=== PATIENT | female | born 1990 | race Caucasian/White ===

== ENCOUNTER 2016-12-31 18:33 | Emergency (ER) | payer BC ==
[~2016-12-31] VITALS: Ht 157.5 cm; Wt 54.4 kg
[2016-12-31] MEDS ORDERED: ZANTAC150 MG ORAL (18:52)
[2016-12-31] MEDS ORDERED: SUCRALFATE1 GM ORAL (18:52)
[2016-12-31] MEDS ORDERED: BENTYL10 MG ORAL (19:19)
[2016-12-31] MEDS ORDERED: Lidocaine 2% Visc 15ml soln ORAL ONE (19:30)
[2016-12-31] MEDS ORDERED: Dicyclomine HCl 10mg/5ml oral soln ORAL ONE (19:30)
[2016-12-31] MEDS ORDERED: LIDOCAINE VISCO20 ML PO (19:57)
[2016-12-31 20:02] LABS: APPEARANCE,URINE CLEAR; KETONES,URINE NEGATIVE (NEGATIVE); LEUKOCYTE ESTERASE ,URINE 1+ (NEGATIVE); NITRITE,URINE NEGATIVE (NEGATIVE); PH,URINE 7 (4.5-8.0); PROTEIN,URINE NEGATIVE (NEGATIVE); UROBILINOGEN,URINE NORMAL MG/DL (0.0-1.0)
--- NOTE | 2016-12-31 20:02 | Emergency Room Report ---
History of Present Illness General Chief Complaint: Abdominal Pain Source: Patient Present Illness HPI This is a 26-year-old female presented for increased abdominal pain. Patient gradual onset of symptoms. Patient recently been treated for gastritis. This had been diagnosed on endoscopy. The patient previous said history of H. pylori. Patient recently been switched from her Protonix to sucralfate and ranitidine. Patient not been having any black or bloody stools. She denied any fever. She denied having any diarrhea. Patient taken viscous lidocaine combined with Mylanta and Gas-X. This did not modify the pain. Patient reported having increased pain after eating. Allergies: Coded Allergies: PENICILLINS (Verified Allergy, Unknown, 12/31/16) Patient History Past Medical History: see triage record Last Menstrual Period: 11/08/2016 Reviewed Nursing Documentation: PMH: Agreed, PSxH: Agreed Nursing Documentation-PMH Past Medical History: No History, Except For Hx Gastrointestinal Problems: Yes - Gastritis, H.Pylori Review of Systems All Other Systems: negative except mentioned in HPI Physical Exam Vital Signs Date Time Temp Pulse Resp B/P Pulse Ox O2 Delivery O2 Flow Rate FiO2 12/31/16 18:38 98.1 53 16 122/84 97 General Appearance: well appearing, no apparent distress, alert, GCS 15 Head: normocephalic, atraumatic ENT: hearing grossly normal, normal voice Neck: full range of motion, supple Respiratory: no respiratory distress, speaking full sentences Cardiovascular #1: regular rate, rhythm, no edema Gastrointestinal: normal inspection, normal bowel sounds, soft, no mass Musculoskeletal: no calf tenderness Neurologic: normal inspection, alert, oriented x3, responsive, cutter and presser III-XII nml as tested, normal gait Psychiatric: mood/affect normal Skin: no rash Medical Decision Making Diagnostic Impression: Primary Impression: Nonspecific abdominal pain Additional Impression: Gastritis ER Course Patient presented for abdominal pain. Differential diagnoses included ischemic bowel, appendicitis, perforated viscus, abdominal aortic aneurysm, inferior myocardial infarction, viral gastroenteritis Patient's benign exam and does not appear to require any further imaging or laboratory testing at this time. The patient was noted to have a prior history of gastritis. This appears to be consistent with patient's current pain. Patient was given a GI cocktail improvement. test was negative. The patient is advised to follow up with GI physician in 2-3 days. Patient is advised to return if any worsening condition or if any changes in status that are concerning. Labs Test 12/31/16 19:07 Urine Color Pale yellow Urine Appearance Clear Urine pH 7 (4.5-8.0) Urine Specific [place] 1.010 (1.005-1.035) Urine Protein Negative (NEGATIVE) Urine Glucose (UA) Negative (NEGATIVE) Urine Ketones Negative (NEGATIVE) Urine Occult Blood Negative (NEGATIVE) Urine Nitrite Negative (NEGATIVE) Urine Bilirubin Negative (NEGATIVE) Urine Urobilinogen Normal MG/DL (0.0-1.0) Urine Leukocyte Esterase 1+ (NEGATIVE) Urine RBC 0-2 /HPF (0 - 2) Urine WBC 0 /HPF (0 - 2) Urine Squamous Epithelial Cells None /LPF (NONE/OCC) Urine Bacteria None /HPF (NONE) Urine HCG, Qualitative Negative Last Vital Signs Date Time Temp Pulse Resp B/P Pulse Ox O2 Delivery O2 Flow Rate FiO2 12/31/16 18:38 98.1 53 16 122/84 97 Status: improved Disposition: HOME, SELF-CARE Condition: Stable Scripts Lidocaine HCl (Lidocaine HCl Viscous) 100 Ml Solution 20 ML PO NEEDED q 6 hrs, #120 ML Prov: Benito Cam 12/31/16 Dicyclomine Hcl* (BENTYL*) 10 Mg Capsule 10 MG ORAL FOUR TIMES A DAY, #30 CAP Prov: Benito Cam 12/31/16 Referrals: NOT CHOSEN IPA/,REFERRING (PCP) Patient Instructions: Abdominal Pain, Adult Benito Cam December 31, 2016 20:02
[2016-12-31 20:05] VITALS: BP 115/82
[2016-12-31 20:13] LABS: RBC,URINE 0-2 /HPF (0 - 2)
[2016-12-31 20:14] LABS: WBC,URINE 0 /HPF (0 - 2)
== END 2016-12-31 20:09 | disposition home or self-care (01) ==
LOC: EMR 19:13
DX: K29.70 Gastritis, unspecified, without bleeding (principal); R10.9 Unspecified abdominal pain; Z88.0 Allergy status to penicillin
CPT/HCPCS: 81001; 81025; 99284